=== PATIENT | female | born 1980 | race Caucasian/White ===

== ENCOUNTER → 2021-05-17 | Outpatient (CLI) | payer OTHER ==
[~2021-05-17] MED LIST: OTC IRON; OXYACE5T PO; RXOXYACE PO
[2021-05-23 12:09] LABS: CHLAMYDIA BY NAA Negative (Negative); GONOCOCCUS BY NAA Negative (Negative); HPV 16 Negative (Negative); HPV 18 Negative (Negative); HPV OTHER HR TYPES Negative (Negative); TRICH VAG BY NAA Negative (Negative)
== END ==
LOC: LAB SHORT 15:20 → LAB 15:20
PROVIDERS: Nurse Practitioner Family
DX: Z01.419 Encounter for gynecological examination (general) (routine) without abnormal findings (principal)
CPT/HCPCS: 87491; 87591; 87624; 87661; G0123

== ENCOUNTER 2024-09-08 00:06 | Emergency (ER) | payer OTHER ==
[~2024-09-08] VITALS: Ht 154.9 cm; Wt 79.4 kg
[2024-09-08 00:17] VITALS: BP 138/81
== END 2024-09-08 01:30 | disposition home or self-care (01) ==
LOC: ER 00:06
DX: S61.011A Laceration without foreign body of right thumb without damage to nail, initial encounter (principal)
CPT/HCPCS: 12001; 73120; 99283-25

== ENCOUNTER 2025-01-30 02:23 | Emergency (ER) | payer OTHER ==
[~2025-01-30] VITALS: Ht 154.9 cm; Wt 81.7 kg
[2025-01-30] MEDS ORDERED: CEPH500 PO (04:16)
[2025-01-30 04:23] VITALS: BP 114/80
== END 2025-01-30 04:28 | disposition home or self-care (01) ==
LOC: ER 02:23
DX: S61.211A Laceration without foreign body of left index finger without damage to nail, initial encounter (principal); Z88.0 Allergy status to penicillin; Z79.2 Long term (current) use of antibiotics; Z90.711 Acquired absence of uterus with remaining cervical stump; Z59.89 Other problems related to housing and economic circumstances; W26.8XXA Contact with other sharp object(s), not elsewhere classified, initial encounter
CPT/HCPCS: 12001; 99282-25

== ENCOUNTER 2025-07-11 18:47 | Emergency (ER) | payer OTHER ==
[~2025-07-11] VITALS: Ht 154.9 cm; Wt 77.1 kg
[~2025-07-11 18:47] MED LIST changes: +CEPH500 PO
[2025-07-11 19:54] VITALS: BP 137/85
[2025-07-11] MEDS ORDERED: Ketorolac Tromethamine 30mg Vial IM ONE (20:00)
== END 2025-07-11 22:44 | disposition home or self-care (01) ==
LOC: ER 18:47
DX: S89.92XA Unspecified injury of left lower leg, initial encounter (principal); Z88.0 Allergy status to penicillin; Z79.2 Long term (current) use of antibiotics; W01.0XXA Fall on same level from slipping, tripping and stumbling without subsequent striking against object, initial encounter
CPT/HCPCS: 73562-LT; 96372; 99283-25; J1885